=== PATIENT | male | born 1980 | race Two or more races ===

== ENCOUNTER 2021-05-16 20:38 | Emergency (ER) | payer SELFPAY ==
[~2021-05-16] VITALS: Ht 170.2 cm; Wt 74.4 kg
--- NOTE | 2021-05-16 21:00 | NUR ---
PATIENT [id number] FROM [facility] C/O BACK PAIN AND "FEELING SICK" FOR THE PAST 3 DAYS. PATIENT IS A/OX 3, RR EVEN AND UNLABORED NO SOB NOTED. PATIENT CONNECETED TO CARDIAC AND POX MONITOR.
[2021-05-16] MEDS ORDERED: ONDANSETRON HCL/PF 4 MG/2 ML VIAL ONE (21:18)
[2021-05-16] MEDS ORDERED: IV NS 0.9% 1,000 ML BAG IV ONE (21:30)
[2021-05-16] MEDS ORDERED: ONDANSETRON HCL/PF 4 MG/2 ML VIAL IVP ONE (21:30)
--- NOTE | 2021-05-16 21:30 | NUR ---
bending machine set up operator at bedside, called second tech for draw, pt hard stick
--- NOTE | 2021-05-16 22:18 | NUR ---
URINE COLLECETED AND SENT TO LAB
[2021-05-16] MEDS ORDERED: LIDOCAINE 2% JEL UROJET 10 ML MM ONE (22:55)
[2021-05-16 23:05] LABS: BASOPHILS % (AUTO) 0.5 % (0.0-2.0); EOSINOPHILS % (AUTO) 3.5 % (0.0-6.0); HEMATOCRIT 38 % (39-51); HEMOGLOBIN 12.5 g/dL (13.5-17.5); LYMPHOCYTES # (AUTO) 1.6 K/uL (0.8-4.8); MEAN CORPUSCULAR HGB CONC 33 g/dl (31.0-36.0); MEAN CORPUSCULAR VOLUME 84 fL (80-96); MONOCYTES # (AUTO) 0.5 K/uL (0.1-1.30); MONOCYTES % (AUTO) 6.4 % (2.0-12.0); NEUTROPHILS % (AUTO) 67.6 % (43.0-81.0); PLATELET COUNT (AUTO) 264 K/uL (150-450); RED BLOOD CELL COUNT(AUTO) 4.51 MIL/uL (4.5-6.0); WHITE BLOOD COUNT (AUTO) 7.4 K/uL (4.3-11.0)
[2021-05-16 23:38] LABS: ALANINE AMINOTRANSFERASE 68 U/L (12-78); ALBUMIN 2.9 g/dL (3.4-5.0); ALKALINE PHOSPHATASE 111 U/L (46-116); ASPARTATE AMINOTRANSFERASE 43 U/L (15-37); BILIRUBIN,DIRECT 0.1 mg/dL (0.0-0.2); BILIRUBIN,TOTAL 0.3 mg/dL (0.2-1.0); CALCIUM, SERUM 8.3 mg/dL (8.5-10.1); CARBON DIOXIDE 35 mmol/L (21-32); CHLORIDE 102 mmol/L (98-107); CREATININE 0.9 mg/dL (0.6-1.3); GLUCOSE 97 mg/dL (74-106); POTASSIUM 4.1 mmol/L (3.5-5.1); SODIUM SERUM 138 mmol/L (136-145); TOTAL PROTEIN, SERUM 6.3 g/dL (6.4-8.2); UREA NITROGEN, BLOOD 11 mg/dL (7-18)
[2021-05-16 23:43] LABS: BILIRUBIN,URINE NEGATIVE (NEGATIVE); COLOR,URINE YELLOW (YELLOW); LEUKOCYTE ESTERASE ,URINE NEGATIVE (NEGATIVE); NITRITE, URINE NEGATIVE (NEGATIVE); PROTEIN,URINE NEGATIVE (NEGATIVE); UGLUCOSE 100 MG/DL mg/dL (NEGATIVE)
[2021-05-16 23:52] LABS: ALCOHOL, BLOOD < 3 mg/dL (0-0)
[2021-05-16 23:56] LABS: ACETAMINOPHEN < 2 ug/ml (10-30)
[2021-05-17 00:10] LABS: BACTERIA,URINE None seen /HPF (None Seen); MUCUS,URINE Few /LPF (None Seen); RBC,URINE 0-2 /HPF (0-2); SQUAMOUS EPITHELIAL CELL,UR Few /HPF (None Seen); URINE AMORPHOUS PHOSPHATES Few /HPF (None Seen)
--- NOTE | 2021-05-17 05:15 | NUR ---
Patient discharged to home in stable condition. Written and verbal after care instructions given. Patient verbalizes understanding of instruction.
[2021-05-17 05:16] VITALS: BP 133/70
== END 2021-05-17 05:16 | disposition home or self-care (01) ==
LOC: EDSEX 20:43 → ER 20:43
DX: F15.23 Other stimulant dependence with withdrawal (principal); M79.10 Myalgia, unspecified site; Z59.00 Homelessness unspecified
CPT/HCPCS: 36415; 71045; 80048; 80076; 80143; 80307; 80320; 81001; 85025; 99285; J3490; G0480; J2405

== ENCOUNTER 2021-10-16 18:24 | Emergency (ER) | payer SELFPAY ==
[~2021-10-16] VITALS: Ht 170.2 cm; Wt 79.4 kg
--- NOTE | 2021-10-16 18:24 | NUR ---
PT BIBRA 860 AND [employer] FROM [employer] C/O BIZARRE BEHAVIOR AFTER METH USED. PT DENIES SUICIDAL IDEATION. PT IS AAOX3, NOT IN RESPIRATORY DISTRESS, HOOKED TO V/S MONITOR, KEPT RESTED AND COMFORTABLE. WILL CONTINUE TO MONITOR.
--- NOTE | 2021-10-16 18:40 | NUR ---
Trey roy in [facility] - 10/16/21 at 1843 by KATELIN URINE SPECIMEN COLLECTED AND SENT TO LAB.
[2021-10-16] MEDS ORDERED: diphenhydrAMINE HCL 50 MG/ML VIAL IV ONE (19:00)
[2021-10-16] MEDS ORDERED: HALOPERIDOL LACTATE INJ 5 MG/ML VIAL IM ONE (19:00)
--- NOTE | 2021-10-16 19:03 | NUR ---
COVID SWAB COLLECTED AND SENT.
--- NOTE | 2021-10-16 19:05 | NUR ---
URINE COLLECTED AND SENT TO LAB
[2021-10-16] MEDS ORDERED: diphenhydrAMINE HCL 50 MG/ML VIAL ONE (19:11)
[2021-10-16] MEDS ORDERED: HALOPERIDOL LACTATE INJ 5 MG/ML VIAL ONE (19:12)
[2021-10-16 19:37] LABS: BILIRUBIN,URINE NEGATIVE (NEGATIVE); COLOR,URINE YELLOW (YELLOW); LEUKOCYTE ESTERASE ,URINE NEGATIVE (NEGATIVE); NITRITE, URINE NEGATIVE (NEGATIVE); PROTEIN,URINE 100 mg/dl (NEGATIVE); UGLUCOSE NEGATIVE (NEGATIVE); UROBILINOGEN,URINE 0.2 EU/dL (0.2)
[2021-10-16 19:46] LABS: BACTERIA,URINE 1+ /HPF (None Seen); COARSE GRANULAR CASTS,URINE Few /LPF (None Seen); RBC,URINE 21-50 /HPF (0-2); SQUAMOUS EPITHELIAL CELL,UR Few /HPF (None Seen)
[2021-10-16 20:02] LABS: ALANINE AMINOTRANSFERASE 44 U/L (12-78); ALCOHOL, BLOOD < 3 mg/dL (0-0); ALKALINE PHOSPHATASE 107 U/L (46-116); ASPARTATE AMINOTRANSFERASE 59 U/L (15-37); BILIRUBIN,DIRECT 0.2 mg/dL (0.0-0.2); BILIRUBIN,TOTAL 0.5 mg/dL (0.2-1.0); CALCIUM, SERUM 8.6 mg/dL (8.5-10.1); CARBON DIOXIDE 23 mmol/L (21-32); CHLORIDE 103 mmol/L (98-107); CREATININE 1.5 mg/dL (0.6-1.3); GLUCOSE 125 mg/dL (74-106); POTASSIUM 3.6 mmol/L (3.5-5.1); SODIUM SERUM 137 mmol/L (136-145); TOTAL PROTEIN, SERUM 7.3 g/dL (6.4-8.2); UREA NITROGEN, BLOOD 25 mg/dL (7-18)
[2021-10-16 20:19] LABS: BASOPHILS % (AUTO) 0.1 % (0.0-2.0); EOSINOPHILS % (AUTO) 0.1 % (0.0-6.0); HEMATOCRIT 31 % (39-51); HEMOGLOBIN 9.9 g/dL (13.5-17.5); LYMPHOCYTES # (AUTO) 0.6 K/uL (0.8-4.8); LYMPHOCYTES % (AUTO) 3.5 % (20.0-44.0); MEAN CORPUSCULAR HGB CONC 33 g/dl (31.0-36.0); MEAN CORPUSCULAR VOLUME 82 fL (80-96); MONOCYTES # (AUTO) 0.6 K/uL (0.1-1.30); MONOCYTES % (AUTO) 3.5 % (2.0-12.0); NEUTROPHILS # (AUTO) 15.3 K/uL (1.8-8.9); NEUTROPHILS % (AUTO) 92.8 % (43.0-81.0); PLATELET COUNT (AUTO) 342 K/uL (150-450); RED BLOOD CELL COUNT(AUTO) 3.75 MIL/uL (4.5-6.0); WHITE BLOOD COUNT (AUTO) 16.5 K/uL (4.3-11.0)
--- NOTE | 2021-10-16 20:50 | NUR ---
PT TO CT VIA [facility]
[2021-10-16] MEDS ORDERED: PIPERACILLIN /TAZOBACTAM 3.375 G VIAL IV ONE (22:27)
[2021-10-16] MEDS ORDERED: PIPERACILLIN /TAZOBACTAM 3.375 G in IV D5W 50 ML IV ONE (22:30)
[2021-10-16] MEDS ORDERED: IV NS 0.9% 1,000 ML BAG IV ONE ×2 (22:30→23:30)
--- NOTE | 2021-10-17 02:56 | NUR ---
[employer] [facility] [employer] AT BEDSIDE
[2021-10-17] MEDS ORDERED: AMOX-430 PO (02:58)
--- NOTE | 2021-10-17 11:09 | NUR ---
Patient given written and verbal discharge instructions. Patient verbalizes understanding of instructions. Patient is ambulatory with steady gait. Refuses offer of [facility] placement. Patient given list of available shelters in surrounding area.
[2021-10-17 11:10] VITALS: BP 125/73
== END 2021-10-17 06:43 | disposition home or self-care (01) ==
LOC: ER 18:26
DX: F29 Unspecified psychosis not due to a substance or known physiological condition (principal); Z59.00 Homelessness unspecified; F15.10 Other stimulant abuse, uncomplicated; K52.9 Noninfective gastroenteritis and colitis, unspecified; R31.29 Other microscopic hematuria; Z20.822 Contact with and (suspected) exposure to COVID-19; R16.2 Hepatomegaly with splenomegaly, not elsewhere classified; R00.0 Tachycardia, unspecified
CPT/HCPCS: 36415; 74176; 80048; 80076; 80143; 80307; 80320; 81001; 85025; 87426; 96361; 96365; 96372 ×2; 99291; C9803; J1200; J1630; J2543 ×2; J7060; G0480